=== PATIENT | male | born 1970 | race Caucasian/White ===

== ENCOUNTER 2020-06-12 19:12 | Emergency (ER) | payer MEDICAID ==
--- NOTE | 2020-06-12 19:16 | EDM.PDOC ---
ED HPI GENERAL MEDICAL PROBLEM - General Chief Complaint: Trauma Stated Complaint: EMS ARRIVAL Time Seen by Provider: 06/12/20 19:14 - History of Present Illness INITIAL COMMENTS - FREE TEXT/NARRATIVE: History of present illness: [] This patient is on Eliquis for prior DVT was crushed under an automobile when he was working on it. He was able to get out on his own. He crushed his right shoulder and right hip and scraped his right lateral flank above the iliac crest. He complains of pain in the right shoulder. He said he felt a pop when the car crusted. The paramedics put him in a sling and he felt a pop and they put him in a sling and his pain was reduced. Denies any trouble breathing. He arrived as a trauma alert. The patient came in as a potential life-threatening emergency with a crush injury and before he was registered we shot a portable chest x-ray which demonstrated no displaced rib fracture and no pneumothorax. Then we went through the initial examination with a primary survey and discovered the things on the following physical exam. The patient remained stable after we got him undressed and examined him from head to toe. He also has an additional history of large abdominal hernia in the ventral area which is not changed according to him. He denies any trouble breathing. C-spine was cleared by Nexus criteria. Review of systems: As per history of present illness and below otherwise all systems reviewed and negative. Past medical history: As per history of present illness and as reviewed below otherwise noncontributory. Surgical history: As per history of present illness and as reviewed below otherwise noncontributory. Social history: No reported history of drug or alcohol abuse. Family history: As per history of present illness and as reviewed below otherwise noncontrib utory. Physical exam: Constitutional - well developed, well-nourished and in no acute distress HEENT - normocephalic, no evidence of trauma - external nose and mouth normal - no mass in neck and no JVD - mucosae moist EYES - full EOM, PERRL, no icterus - no evidence of inflammation, injection, or drainage Respiratory - no respiratory distress, equal bilateral expansion, lungs clear to auscultation and no abnormal lung sounds Cardiovascular - Regular Rhythm with S1 and S2 appreciated and no murmur, gallop or rub. GI - abdomen soft without distension or organomegaly -large reducible ventral hernia which is nontender-normal bowel sounds - no guard or rebound Musculoskeletal there is tenderness and pain on range of motion of the right shoulder. Tenderness right hip. There is tenderness in the anterior right upper superior iliac crest. No gross deformity of long bones or joints - no tenderness, swelling or edema Neurologic - Alert and oriented times four - CN II-XII grossly intact - motor sensory and coordination symmetrically normal Psychiatric - appropriate mood and affect with normal thought content Hematologic - No petechiae or purpura - mucosa appropriate color and sclera not pale - normal nail bed color and refill Integument -abrasion over the right anterior superior iliac crest. No rash or evidence of trauma - normal turgor Diagnostics: [] Therapeutics: [] Impression: [] Plan: [] Definitive disposition and diagnosis as appropriate pending reevaluation and review of above. right shoulder/hip Pain Score (Numeric/FACES): 8 - Related Data Allergies Allergy/AdvReac Type Severity Reaction Status Date / Time Penicillins Allergy Hives Verified 06/12/20 19:28 Home Meds: Home Meds Acetaminophen/HYDROcodone [Bandon 325-10 MG] 1 tab PO Q4H PRN #14 tablet 06/12/20 [Rx] Apixaban [Eliquis] 1 tab PO DAILY 06/12/20 [History] Review of Systems - Review of Systems Review Of Systems: Comprehensive ROS is negative, except as noted in HPI. ED EXAM, GENERAL - Physical Exam Exam: See Below Free Text/Narrative:: My physical exam is in the HPI Course - Vital Signs Text/Narrative:: 2023 the patient's x-rays were reviewed by me the chest x-ray showed no displaced rib fracture or pneumothorax. AC separation on the right. The hip and pelvis showed no acute injury. Because the patient is on Eliquis and suffered a crush injury there is serious concern for internal bleeding. I carefully reviewed his chest exam and palpated his abdomen and then convinced that there is no internal bleeding. He has a that will be with him. The end she will bring him back if he begins to have new pain, lightheadedness, diaphoresis, or any new symptoms of significance. This patient was seen and evaluated during the 2019 SARS-CoV-2 novel coronavirus pandemic period. Community viral transmission is ongoing at time of this encounter and the emergency department is operating under pandemic response procedures. 2143 the patient most graciously waited to do an expiratory film because the radiologist thought there might be a left pneumothorax on the plain film. He read the repeat film is no pneumothorax. Patient discharged in satisfactory condition. Last Recorded V/S: Last Vital Signs Temp 36.4 C 06/12/20 19:15 Pulse 69 06/12/20 20:26 Resp 18 06/12/20 20:26 BP 123/83 06/12/20 20:26 Pulse Ox 96 06/12/20 20:26 - Orders/Labs/Meds Orders: Active Orders 24 hr Category Date Time Status EKG Documentation Completion [RC] AM Care 06/12/20 19:27 Active Sodium Chloride 0.9% [Saline Flush] Med 06/12/20 19:27 Active 10 ml FLUSH ASDIRECTED PRN Sodium Chloride 0.9% [Saline Flush] Med 06/12/20 19:27 Active 2.5 ml FLUSH ASDIRECTED PRN DME for Discharge [COMM] Stat Oth 06/12/20 20:26 Ordered Saline Lock Insert [OM.PC] Stat Oth 06/12/20 19:27 Ordered Medication Orders Sodium Chloride (Sodium Chloride 0.9% 10 Ml Syringe) 10 ml FLUSH ASDIRECTED PRN PRN Reason: Keep Vein Open Sodium Chloride (Sodium Chloride 0.9% 2.5 Ml Syringe) 2.5 ml FLUSH ASDIRECTED PRN PRN Reason: Keep Vein Open Labs: Laboratory Tests 06/12/20 06/12/20 06/12/20 Range/Units 19:45 20:11 20:16 WBC 13.69 H (4.0-11.0) K/uL RBC 4.69 (4.50-5.90) M/uL Hgb 14.1 (13.0-17.0) g/dL Hct 40.8 (38.0-50.0) % MCV 87.0 (80.0-98.0) fL MCH 30.1 (27.0-32.0) pg MCHC 34.6 (31.0-37.0) g/dL RDW Std Deviation 42.1 (28.0-62.0) fl RDW Coeff of Rosa Maria 13 (11.0-15.0) % Plt Count 284 (150-400) K/uL MPV 9.60 (7.40-12.00) fL Neut % (Auto) 74.2 (48.0-80.0) % Lymph % (Auto) 16.1 (16.0-40.0) % York % (Auto) 8.8 (0.0-15.0) % Eos % (Auto) 0.6 (0.0-7.0) % Baso % (Auto) 0.3 (0.0-1.5) % Neut # (Auto) 10.2 H (1.4-5.7) K/uL Lymph # (Auto) 2.2 (0.6-2.4) K/uL York # (Auto) 1.2 H (0.0-0.8) K/uL Eos # (Auto) 0.1 (0.0-0.7) K/uL Baso # (Auto) 0.0 (0.0-0.1) K/uL Nucleated RBC % 0.0 /100WBC Nucleated RBCs # 0 K/uL INR APTT (18.6-31.3) SEC Sodium 141 (136-148) mmol/L Potassium 3.7 (3.5-5.1) mmol/L Chloride 103 (98-107) mmol/L Carbon Dioxide 23.3 (21.0-32.0) mmol/L BUN 17 (7.0-18.0) mg/dL Creatinine 1.3 (0.8-1.3) mg/dL Est Cr Clr Drug Dosing 71.60 mL/min Estimated GFR (MDRD) 58.2 ml/min Glucose 155 H (74-106) mg/dL Calcium 8.9 (8.5-10.1) mg/dL Total Bilirubin 0.7 (0.2-1.0) mg/dL AST 27 (15-37) IU/L ALT 41 (14-63) IU/L Alkaline Phosphatase 61 (46-116) U/L Troponin I < 0.050 (0.000-0.056) ng/mL Total Protein 7.4 (6.4-8.2) g/dL Albumin 3.7 (3.4-5.0) g/dL Globulin 3.7 (2.6-4.0) g/dL Albumin/Globulin Ratio 1.0 (0.9-1.6) Urine Color YELLOW Urine Appearance CLEAR Urine pH 5.5 (5.0-8.0) Ur Specific [place] >= 1.030 (1.001-1.035) Urine Protein NEGATIVE (NEGATIVE) mg/dL Urine Glucose (UA) NEGATIVE (NEGATIVE) mg/dL Urine Ketones NEGATIVE (NEGATIVE) mg/dL Urine Occult Blood NEGATIVE (NEGATIVE) Urine Nitrite NEGATIVE (NEGATIVE) Urine Bilirubin NEGATIVE (NEGATIVE) Urine Urobilinogen 0.2 (<2.0) EU/dL Ur Leukocyte Esterase NEGATIVE (NEGATIVE) Ethyl Alcohol 4 mg/dL 06/12/20 Range/Units 20:16 WBC (4.0-11.0) K/uL RBC (4.50-5.90) M/uL Hgb (13.0-17.0) g/dL Hct (38.0-50.0) % MCV (80.0-98.0) fL MCH (27.0-32.0) pg MCHC (31.0-37.0) g/dL RDW Std Deviation (28.0-62.0) fl RDW Coeff of Rosa Maria (11.0-15.0) % Plt Count (150-400) K/uL MPV (7.40-12.00) fL Neut % (Auto) (48.0-80.0) % Lymph % (Auto) (16.0-40.0) % York % (Auto) (0.0-15.0) % Eos % (Auto) (0.0-7.0) % Baso % (Auto) (0.0-1.5) % Neut # (Auto) (1.4-5.7) K/uL Lymph # (Auto) (0.6-2.4) K/uL York # (Auto) (0.0-0.8) K/uL Eos # (Auto) (0.0-0.7) K/uL Baso # (Auto) (0.0-0.1) K/uL Nucleated RBC % /100WBC Nucleated RBCs # K/uL INR 1.04 APTT 21.9 (18.6-31.3) SEC Sodium (136-148) mmol/L Potassium (3.5-5.1) mmol/L Chloride (98-107) mmol/L Carbon Dioxide (21.0-32.0) mmol/L BUN (7.0-18.0) mg/dL Creatinine (0.8-1.3) mg/dL Est Cr Clr Drug Dosing mL/min Estimated GFR (MDRD) ml/min Glucose (74-106) mg/dL Calcium (8.5-10.1) mg/dL Total Bilirubin (0.2-1.0) mg/dL AST (15-37) IU/L ALT (14-63) IU/L Alkaline Phosphatase (46-116) U/L Troponin I (0.000-0.056) ng/mL Total Protein (6.4-8.2) g/dL Albumin (3.4-5.0) g/dL Globulin (2.6-4.0) g/dL Albumin/Globulin Ratio (0.9-1.6) Urine Color Urine Appearance Urine pH (5.0-8.0) Ur Specific [place] (1.001-1.035) Urine Protein (NEGATIVE) mg/dL Urine Glucose (UA) (NEGATIVE) mg/dL Urine Ketones (NEGATIVE) mg/dL Urine Occult Blood (NEGATIVE) Urine Nitrite (NEGATIVE) Urine Bilirubin (NEGATIVE) Urine Urobilinogen (<2.0) EU/dL Ur Leukocyte Esterase (NEGATIVE) Ethyl Alcohol mg/dL Meds: Medications Generic Name Dose Route Start Last Admin Trade Name Freq PRN Reason Stop Dose Admin Sodium Chloride 10 ml 06/12/20 19:27 Sodium Chloride 0.9% 10 Ml Syringe FLUSH ASDIRECTED PRN Keep Vein Open Sodium Chloride 2.5 ml 06/12/20 19:27 Sodium Chloride 0.9% 2.5 Ml Syringe FLUSH ASDIRECTED PRN Keep Vein Open Discontinued Medications Generic Name Dose Route Start Last Admin Trade Name Freq PRN Reason Stop Dose Admin Fentanyl 50 mcg 06/12/20 19:21 06/12/20 19:25 Fentanyl 50 Mcg/Ml Sdv IVPUSH 06/12/20 19:22 50 mcg ONETIME ONE Administration Fentanyl Confirm 06/12/20 19:22 06/12/20 20:01 Fentanyl 50 Mcg/Ml Sdv Administered 06/12/20 19:23 Not Given Dose 50 mcg .ROUTE .STK-MED ONE Ondansetron HCl 4 mg 06/12/20 19:21 06/12/20 19:25 Ondansetron 4 Mg/2 Ml Sdv IVPUSH 06/12/20 19:22 4 mg ONETIME ONE Administration Ondansetron HCl Confirm 06/12/20 19:22 06/12/20 20:01 Ondansetron 4 Mg/2 Ml Sdv Administered 06/12/20 19:23 Not Given Dose 4 mg .ROUTE .STK-MED ONE Departure - Departure Time of Disposition: 21:44 Disposition: Home, Self-Care 01 Condition: Good Clinical Impression: Dislocation of right acromioclavicular joint, 100%-200% displacement, initial encounter, Contusion of right hip, initial encounter, Anticoagulation goal of INR 1.5 to 2.5, History of DVT (deep vein thrombosis) - Discharge Information Prescriptions: Acetaminophen/HYDROcodone [Bandon 325-10 MG] 1 tab PO Q4H PRN #14 tablet PRN Reason: Pain (Severe 7-10) Instructions: Acromioclavicular Separation, Contusion, [id number] Referrals: PCP,Not In Area [Primary Care Provider] - Forms: ED Department Discharge Additional Instructions: You need to take it easy and be watched more closely than someone who is not on anticoagulants. Specifically chest pain shortness of breath lightheadedness sweating feeling if you pass out or abdominal pain or reasons to return and have further work-up. The right shoulder might not need surgery but certainly will be a cosmetic defect because the clavicle will stick up. If your range of motion is okay and it becomes painless over a few days you do not need to follow-up but he certainly can follow-up with the orthopedic clinic. If you need surgery you will probably be transferred to another community nearby. [facility] - Orthopedic Clinic Professional Building [address] [place] [address], [address] [place] [address] [facility] - Primary Care [address] [place] [id number] [id number] the following information is given to patients seen in the emergency department who are being discharged to home. This information is to outline your options for follow-up care. We provide all patients seen in our emergency department with a follow-up referral. The need for follow-up, as well as the timing and circumstances, are variable depending upon the specifics of your emergency department visit. If you don't have a primary care physician on staff, we will provide you with a referral. We always advise you to contact your personal physician following an emergency department visit to inform them of the circumstance of the visit and for follow-up with them and/or the need for any referrals to a consulting specialist. The emergency department will also refer you to a specialist when appropriate. This referral assures that you have the opportunity for follow-up care with a specialist. All of these measure are taken in an effort to provide you with optimal care, which includes your follow-up. Under all circumstances we always encourage you to contact your private physician who remains a resource for coordinating your care. When calling for follow-up care, please make the office aware that this follow-up is from your recent emergency room visit. If for any reason you are refused follow-up, please contact the [facility] Emergency Department at and asked to speak to the emergency department charge nurse. Sepsis Event Note (ED) - Focused Exam Vital Signs: Vital Signs Temp Pulse Resp BP Pulse Ox 06/12/20 20:26 69 18 123/83 96 06/12/20 19:15 36.4 C 65 18 118/71 97 - My Orders Last 24 Hours: My Active Orders 06/12/20 19:27 EKG Documentation Completion [RC] AM Sodium Chloride 0.9% [Saline Flush] 10 ml FLUSH ASDIRECTED PRN Sodium Chloride 0.9% [Saline Flush] 2.5 ml FLUSH ASDIRECTED PRN Saline Lock Insert [OM.PC] Stat 06/12/20 20:26 DME for Discharge [COMM] Stat - Assessment/Plan Last 24 Hours: My Active Orders 06/12/20 19:27 EKG Documentation Completion [RC] AM Sodium Chloride 0.9% [Saline Flush] 10 ml FLUSH ASDIRECTED PRN Sodium Chloride 0.9% [Saline Flush] 2.5 ml FLUSH ASDIRECTED PRN Saline Lock Insert [OM.PC] Stat 06/12/20 20:26 DME for Discharge [COMM] Stat
[2020-06-12] MEDS ORDERED: Ondansetron 4 MG/2 ML SDV IVPUSH ONE (19:21)
[2020-06-12] MEDS ORDERED: fentaNYL 50 MCG/ML SDV IVPUSH ONE (19:21)
[2020-06-12] MEDS ORDERED: Ondansetron 4 MG/2 ML SDV ONE (19:22)
[2020-06-12] MEDS ORDERED: fentaNYL 50 MCG/ML SDV ONE (19:22)
[2020-06-12] MEDS ORDERED: Sodium Chloride 0.9% 10 ML Syringe FLUSH PRN (19:27)
[2020-06-12] MEDS ORDERED: Sodium Chloride 0.9% 2.5 ML Syringe FLUSH PRN (19:27)
--- NOTE | 2020-06-12 19:35 | CR ---
INDICATION: Trauma, check for pneumothorax. TECHNIQUE: Chest 1 view. COMPARISON: None. FINDINGS: There is a small lucency in the medial left upper lung adjacent to the mediastinum which could represent a small loculated pneumothorax. No focal consolidation or pleural effusion. Hazy opacity in the left lung base may represent a prominent cardiac fat pad. Normal heart size and pulmonary vascularity. Cervical spine hardware. IMPRESSION: Possible small loculated pneumothorax in the medial left upper lung. Dictated by Majo Fitzgerald MD @ 06/12/2020 7:34:[address] Majo Fitzgerald @ Jun 12 2020 7:34PM
[2020-06-12 20:12] LABS: BLOOD UREA NITROGEN,BUN 17 mg/dL (7.0-18.0); CARBON DIOXIDE,CO2 23.3 mmol/L (21.0-32.0); CHLORIDE,CL 103 mmol/L (98-107); GLUCOSE RANDOM 155 mg/dL (74-106); POTASSIUM,K 3.7 mmol/L (3.5-5.1); SODIUM,NA 141 mmol/L (136-148)
--- NOTE | 2020-06-12 20:35 | CR ---
Indication: Trauma Technique: Frontal view pelvis, two-view right hip Comparison: None Findings: Bones: Alignment is normal. No fractures or bone lesions. Joint spaces: Unremarkable. Soft tissues: Unremarkable. Impression: Negative. Dictated by Maegan Willson MD @ 06/12/2020 8:35:[address] Maegan Willson @ Jun 12 2020 8:35PM
--- NOTE | 2020-06-12 20:40 | CR ---
Indication: Trauma Technique: Two views right shoulder Comparison: None Findings: The right acromioclavicular joint distance is 1.8 cm. The distal end of the clavicle is elevated above the superior margin of the acromion by 1.0 cm. The coracoclavicular distance is 3.1 cm. No fracture identified. Surgical plate and screw hardware in the lower cervical spine. Visualized portions of the right lung are clear. Impression: Type V (five) acromioclavicular joint injury. Dictated by Maegan Willson MD @ 06/12/2020 8:39:[address] Maegan Willson @ Jun 12 2020 8:39PM
--- NOTE | 2020-06-12 21:30 | CR ---
Indication: Expiratory radiograph for possible left pneumothorax Technique: Frontal view chest in expiration Comparison: Same date at 7:08 cm Findings/Impression: Cardiovascular and mediastinum: Heart size and vasculature are normal in caliber and appearance. Mediastinum is within normal limits. Lungs and pleural space: No pneumothorax. Lungs are clear. No sign of infiltrate or mass. No sign of pleural effusion. Bones and soft tissues: Plate and screw hardware in the lower cervical spine. Dictated by Maegan Willson MD @ 06/12/2020 9:28:[address] Maegan Willson @ Jun 12 2020 9:28PM
== END 2020-06-12 22:05 | disposition home or self-care (01) ==
LOC: MW.ED 19:12
DX: S43.121A Dislocation of right acromioclavicular joint, 100%-200% displacement, initial encounter (principal); S70.01XA Contusion of right hip, initial encounter; R79.1 Abnormal coagulation profile; Z86.718 Personal history of other venous thrombosis and embolism; Z79.01 Long term (current) use of anticoagulants; Z88.0 Allergy status to penicillin; W23.0XXA Caught, crushed, jammed, or pinched between moving objects, initial encounter
CPT/HCPCS: 36415; 71045; 73030; 73502; 80053; 80307; 81003; 84484; 85025; 85610; 85730; 93005; 96374; 96375; 99284; J2405; J3010

== ENCOUNTER 2024-11-02 10:03 | Emergency (ER) | payer OTHER ==
[2024-11-02 10:27] LABS: BASOPHILS ABSOLUTE AUTO 0.06 K/uL (0.00-0.20); BASOPHILS PERCENT AUTO 0.8 % (0.0-1.0); EOSINOPHILS ABSOLUTE AUTO 0.20 K/uL (0.00-0.45); EOSINOPHILS PERCENT AUTO 2.6 % (0.0-6.0); IMMATURE GRAN ABSOLUTE AUTO 0.02 K/uL (0.00-0.05); IMMATURE GRAN PERCENT AUTO 0.3 % (0.0-0.4); LYMPHOCYTES ABSOLUTE AUTO 2.11 K/uL (1.00-4.80); LYMPHOCYTES PERCENT AUTO 27.7 % (24.0-44.0); MEAN PLATELET VOLUME 9.0 fL (9.4-12.4); MONOCYTES ABSOLUTE AUTO 0.85 K/uL (0.00-0.80); MONOCYTES PERCENT AUTO 11.2 % (0.0-8.0); NEUTROPHILS ABSOLUTE AUTO 4.37 K/uL (1.80-7.70); NEUTROPHILS PERCENT AUTO 57.4 % (41.0-71.0); NRBC ABSOLUTE 0.00 K/uL (0.00-0.02); NRBC PERCENT 0.0 /100WBC (0.0-0.2); PLATELET COUNT,PLT 211 K/uL (150-400); RED BLOOD CELL COUNT 4.51 M/uL (4.52-5.90); WHITE BLOOD CELL COUNT,WBC 7.61 K/uL (3.9-11.3)
[2024-11-02 10:40] LABS: INR 0.97 (0.86-1.11); PTT,PARTIAL THROMBOPLSTIN TIME 27.4 SEC (23.9-30.7)
[2024-11-02 10:51] LABS: A/G RATIO 0.9 (0.9-1.6); ALANINE AMINOTRANSFERASE,ALT 39 IU/L (14-63); ASPARTATE AMNIOTRANSFERASE,AST 22 IU/L (15-37); BILIRUBIN TOTAL 0.8 mg/dL (0.2-1.0); BLOOD UREA NITROGEN,BUN 19 mg/dL (7.0-18.0); CARBON DIOXIDE,CO2 28.8 mmol/L (21.0-32.0); CHLORIDE,CL 101 mmol/L (98-107); CREATININE 1.1 mg/dL (0.8-1.3); GLUCOSE RANDOM 116 mg/dL (74-106); POTASSIUM,K 4.0 mmol/L (3.5-5.1); PROTEIN TOTAL,TP 7.8 g/dL (6.4-8.2); SODIUM,NA 139 mmol/L (136-148)
[2024-11-02 10:59] LABS: ESTIMATED GFR 79 mL/min (>60)
== END 2024-11-02 12:37 | disposition home or self-care (01) ==
LOC: MW.ED 10:03
DX: I82.402 Acute embolism and thrombosis of unspecified deep veins of left lower extremity (principal); E66.9 Obesity, unspecified; Z75.3 Unavailability and inaccessibility of health-care facilities; Z88.0 Allergy status to penicillin
CPT/HCPCS: 36415; 80053; 85025; 85610; 85730; 93971; 99284; A9270